=== PATIENT | female | born 1990 | race African-American/Black ===

== ENCOUNTER 2023-06-06 20:07 | Emergency (ER) | payer BC ==
[2023-06-06] MEDS ORDERED: Acetaminophen 500 MG TAB ONE (20:52)
[2023-06-06] MEDS ORDERED: Bacitracin 1 PK ONE (22:16)
== END 2023-06-06 22:26 | disposition home or self-care (01) ==
LOC: ERS 20:07
DX: S00.511A Abrasion of lip, initial encounter (principal); M25.511 Pain in right shoulder; M25.562 Pain in left knee; M25.512 Pain in left shoulder; I10 Essential (primary) hypertension; J45.909 Unspecified asthma, uncomplicated; F17.210 Nicotine dependence, cigarettes, uncomplicated; Z55.6 Problems related to health literacy; W18.30XA Fall on same level, unspecified, initial encounter